=== PATIENT | male | born 1960 | race Caucasian/White ===

== ENCOUNTER 2021-01-17 10:11 | Emergency (ER) | payer BC ==
[~2021-01-17] VITALS: Ht 185.4 cm; Wt 104.5 kg
[~2021-01-17 10:11] MED LIST: ALLERGY RELIEF10 M1 PO; FISH OIL CONCEN1 SGL PO; LIPITOR 10MG10 MG PO; MULTIPLE VITAMI1 CAP PO; SAW PALMETTO1 CAP PO; SUDAFED 12 HOU120 MG PO; SYNTHROID0.175 MG PO; SYNTHROID0.2 M1 PO
[2021-01-17 10:13] VITALS: TEMP 97.8
[2021-01-17 10:26] LABS: BASO % 0.2 % (0.0-2.0); EOS # 0.1 K/mm3 (0.0-0.7); EOS % 0.4 % (0-4.0); GRAN # 12.3 K/mm3 (1.4-6.5); GRAN % 89.9 % (42.2-75.2); HEMATOCRIT 49.2 % (42.0-52.0); HEMOGLOBIN 16.9 g/dl (13.5-18.0); LYMPH # 0.4 K/mm3 (1.2-3.4); LYMPH % 2.6 % (20.0-51.0); MEAN CELL VOLUME 90 fl (80.0-100.0); MEAN CORPUSCULAR HEMOGLOBIN 31 pg (27.0-31.0); MEAN CORPUSCULAR HGB CONC 34 g/dl (33.0-37.0); MEAN PLATELET VOLUME 9.2 fl (7.4-10.4); MONO # 0.9 K/mm3 (0.1-0.6); MONO % 6.5 % (1.7-9.3); PLATELET COUNT 281 K/mm3 (130-400); RED BLOOD COUNT 5.46 M/mm3 (4.20-5.60); REDCELL DISTRIBUTION WIDTH-CV 11.9 % (11.5-14.5)
[2021-01-17 10:45] LABS: ALANINE AMINOTRANSFERASE 26 U/L (0-55); ALBUMIN 4.4 gm/dL (3.4-4.8); ALKALINE PHOSPHATASE 92 U/L (40-150); ANION GAP 13 mmol/L (7-16); AST,SGOT 22 U/L (5-34); BILIRUBIN,TOTAL 0.6 mg/dL (0.2-1.2); BLOOD UREA NITROGEN 18 mg/dL (8-26); CALCIUM 9.5 mg/dL (8.4-10.2); CARBON DIOXIDE 20 mmol/L (23-31); CHLORIDE 106 mmol/L (98-107); CREATININE, serum 1.37 mg/dL (0.72-1.25); GLUCOSE 144 mg/dL (70-99); LIPASE 83 U/L (8-78); POTASSIUM 4.3 mmol/L (3.5-4.5); SODIUM 139 mmol/L (136-145); TOTAL PROTEIN 8.2 gm/dL (6.2-8.1)
[2021-01-17 10:53] LABS: TROPONIN-I < 0.010 ng/mL (0.00-0.033)
[2021-01-17 14:44] LABS: PROTHROMBIN TIME 11.4 SECONDS (9.7-12.8)
[2021-01-17 15:10] VITALS: BP 130/71; PULSE 102
== END 2021-01-17 15:10 | disposition short-term general hospital (02) ==
LOC: COL.ER 10:11
PROVIDERS: Emergency Medicine
DX: I21.3 ST elevation (STEMI) myocardial infarction of unspecified site (principal); R14.0 Abdominal distension (gaseous); D72.829 Elevated white blood cell count, unspecified; R94.4 Abnormal results of kidney function studies; I10 Essential (primary) hypertension; E78.5 Hyperlipidemia, unspecified; E03.9 Hypothyroidism, unspecified; Z79.890 Hormone replacement therapy; Z79.899 Other long term (current) drug therapy
CPT/HCPCS: J1644; J2405; J3010; J3101; Q9967